=== PATIENT | male | born 2000 | race Caucasian/White ===

== ENCOUNTER 2023-07-16 14:51 | Emergency (ER) | payer MEDICAID ==
[~2023-07-16] VITALS: Ht 177.8 cm; Wt 86.4 kg
[2023-07-16 14:56] VITALS: BP 131/87; PULSE 98; TEMP 97.8; O2SAT 98
[2023-07-16] MEDS: LIDOcaine 1% W/epiNEPHrine 1:100,000 20ml vial SQ ONE (17:20)
[2023-07-16] MEDS: HYDROcodone/acetaminophen 10/325mg tab PO ONE (17:29)
[2023-07-16] MEDS: ondansetron 4mg rapidly disintigrating tab PO ONE (17:29)
[2023-07-16] MEDS: tetanus & diphtheria toxoid (Td) vaccine 0.5ml IMVAC ONE (17:31)
[2023-07-16 18:41] VITALS: RESP 17
[2023-07-16] MEDS ORDERED: HYDR-3965 PO (20:23)
[2023-07-16] MEDS ORDERED: CEPH-585 PO (20:23)
== END 2023-07-16 20:52 | disposition home or self-care (01) ==
LOC: ER 14:51
DX: S61.012A Laceration without foreign body of left thumb without damage to nail, initial encounter (principal); F17.200 Nicotine dependence, unspecified, uncomplicated; W25.XXXA Contact with sharp glass, initial encounter; Y93.89 Activity, other specified; Y92.89 Other specified places as the place of occurrence of the external cause; Y99.8 Other external cause status
CPT/HCPCS: 12001; 90471; 90715; 99283; A6222; J7030; A6449

== ENCOUNTER 2023-07-26 11:40 | Emergency (ER) | payer MEDICAID ==
[~2023-07-26] VITALS: Ht 177.8 cm; Wt 95.5 kg
[~2023-07-26 11:40] MED LIST: CEPH-585 PO
[2023-07-26 11:46] VITALS: PULSE 88; O2SAT 98
[2023-07-26 13:51] VITALS: RESP 17; TEMP 98
== END 2023-07-26 14:00 | disposition home or self-care (01) ==
LOC: ER 11:41
DX: S61.012D Laceration without foreign body of left thumb without damage to nail, subsequent encounter (principal); Z79.2 Long term (current) use of antibiotics; X58.XXXD Exposure to other specified factors, subsequent encounter
CPT/HCPCS: 99281; A6258